=== PATIENT | female | born 1955 | race Asian ===

== ENCOUNTER 2019-02-28 19:58 | Emergency (ER) | payer MEDICAID, OTHER ==
[~2019-02-28] VITALS: Ht 149.9 cm; Wt 45.5 kg
[2019-02-28 20:11] VITALS: BP 157/78
[2019-02-28] MEDS ORDERED: BACDS PO (21:39)
== END 2019-02-28 22:04 | disposition home or self-care (01) ==
LOC: ER 19:59
DX: L02.01 Cutaneous abscess of face (principal)
CPT/HCPCS: 10060; 99283

== ENCOUNTER 2019-03-04 20:09 | Emergency (ER) | payer MEDICAID, OTHER ==
[~2019-03-04] VITALS: Ht 149.9 cm; Wt 45.5 kg
[~2019-03-04 20:09] MED LIST: BACDS PO
[2019-03-04 21:55] VITALS: BP 140/76
== END 2019-03-04 21:56 | disposition home or self-care (01) ==
LOC: ER 20:10
DX: J34.89 Other specified disorders of nose and nasal sinuses (principal)
CPT/HCPCS: 99281

== ENCOUNTER 2019-03-27 21:27 | Emergency (ER) | payer MEDICAID, OTHER ==
[~2019-03-27] VITALS: Ht 149.9 cm; Wt 45.4 kg
[2019-03-27] MEDS ORDERED: ibuprofen tablet 400 MG TABLET PO ONE (23:00)
[2019-03-27 23:45] VITALS: BP 116/78
== END 2019-03-27 23:15 | disposition home or self-care (01) ==
LOC: ER 21:28
DX: J34.89 Other specified disorders of nose and nasal sinuses (principal)
CPT/HCPCS: 99283